=== PATIENT | female | born 1980 | race African-American/Black ===

== ENCOUNTER 2020-06-04 08:34 | Inpatient (IN) ==
[2020-06-04] MEDS ORDERED: MIDAZOLAM 10 MG/2 ML VIAL ONE (09:29)
[2020-06-04] MEDS ORDERED: AMIODARONE 150 MG/3 ML VIAL ONE (09:45)
[2020-06-04] MEDS ORDERED: METOPROLOL TARTRATE 5 MG/5 ML VIAL IV ONE (09:56)
[2020-06-04 10:08] LABS: Alanine Aminotransferase 24 U/L (13-56); Albumin 3.5 G/DL (3.4-5.0); Alkaline Phosphatase 90 U/L (45-117); Aspartate Amino Transferase 21 U/L (0-37); Blood Urea Nitrogen 7 MG/DL (7-18); Calcium 8.6 MG/DL (8.5-10.1); Carbon Dioxide 19 MMOL/L (21-32); Estimated Glom Filtration Rate 106 ML/MIN; Glucose 120 MG/DL (74-106); Osmolality,Calculated 275.5 MOS/KG (273-304); Potassium 3.4 MMOL/L (3.5-5.1); Sodium 139 MMOL/L (136-145); Total Protein 7.4 G/DL (5.0-7.5); Troponin I 0.018 NG/ML (0.00-0.045)
[2020-06-04] MEDS ORDERED: DILTIAZEM 100 MG VIAL.ADD IV ONE (10:13)
[2020-06-04] MEDS ORDERED: DILTIAZEM 50 MG/10 ML VIAL IV ONE (10:14)
[2020-06-04] MEDS ORDERED: diphenhydrAMINE CAP 25 MG CAPSULE PO PRN (10:23)
[2020-06-04] MEDS ORDERED: ALUMINUM/MAGNES/SIMETH MAX STR 30 ML UDCUP PO PRN (10:23)
[2020-06-04] MEDS ORDERED: ONDANSETRON 4 MG/2 ML VIAL IV PRN (10:23)
[2020-06-04] MEDS ORDERED: MAGNESIUM SULF RIDER 4 GM in PREMIX 1 EACH IV PRN (10:23)
[2020-06-04] MEDS ORDERED: MAGNESIUM SULF RIDER 2 GM in PREMIX 1 EACH IV PRN (10:23)
[2020-06-04] MEDS ORDERED: POTASSIUM CHLORIDE 20 MEQ TABLET PO PRN (10:23)
[2020-06-04] MEDS ORDERED: ACETAMINOPHEN 325 MG TABLET PO PRN (10:23)
[2020-06-04] MEDS ORDERED: guaiFENesin/DM ER 600-30 MG TABLET PO PRN (10:23)
[2020-06-04] MEDS ORDERED: PROMETHAZINE 25 MG TABLET PO PRN (10:23)
[2020-06-04] MEDS ORDERED: DOCUSATE SODIUM 100 MG CAPSULE PO PRN (10:23)
[2020-06-04] MEDS ORDERED: MAGNESIUM SULF RIDER 2 GM in PREMIX 1 EACH IV STA (10:26)
[2020-06-04] MEDS ORDERED: POTASSIUM CHLORIDE 20 MEQ TABLET PO STA (10:26)
[2020-06-04] MEDS ORDERED: AMIODARONE IV ONE (10:30)
[2020-06-04] MEDS ORDERED: MIDAZOLAM 10 MG/2 ML VIAL IV STA (10:35)
[2020-06-04] MEDS ORDERED: AMIODARONE INJ 150 MG in DEXTROSE 5% 100 ML IV ONE ×2 (10:36→12:12)
[2020-06-04] MEDS ORDERED: METOPROLOL TARTRATE 5 MG/5 ML VIAL IV STA (10:36)
[2020-06-04] MEDS ORDERED: SODIUM CHLORIDE 0.9% 500 ML IV ONE (10:51)
[2020-06-04] MEDS: DILTIAZEM INJ 100 MG in SODIUM CHLORIDE 0.9% 100 ML IV SCH (11:00)
[2020-06-04 11:38] LABS: Basophils # 0.1 10*3/uL (0.0-0.2); Basophils % 0.4 % (0.0-0.8); Eosinophils # 0.1 10*3/uL (0.0-0.87); Eosinophils % 0.3 % (0.00-10.9); Hematocrit 35.3 VOL% (35.7-47.0); Hemoglobin 10.9 GM/DL (12.0-16.0); Immature Granulocytes % 0.6 %; Lymphocytes # 2.4 10*3/uL (1.4-4.0); Lymphocytes % 14.1 % (21.3-54.2); Mean Corpuscular HGB Conc 30.9 GM/DL (32-36); Mean Corpuscular Volume 76.6 FL (87-102); Mean Platelet Volume 10.5 FL (9.6-12.0); Neutrophils % 76.6 % (38.7-73.9); Platelet Count 192 T/CUMM (130-400); Red Blood Count 4.61 MC/CUMM (3.8-5.5); Red Cell Distribution Width 15.9 % (9.3-17.3); White Blood Count 16.7 T/CUMM (4-12)
[2020-06-04] MEDS: ENOXAPARIN 40 MG/0.4 ML SYRINGE SUBCUT SCH (12:04)
[2020-06-04] MEDS: SODIUM CHLORIDE 0.9% 1,000 ML IV SCH ×2 (12:29→17:44)
[2020-06-04] MEDS: DIGOXIN 0.5 MG/2 ML AMP IV STA ×2 (12:37→13:30)
[2020-06-04 17:48] LABS: Barbiturates Screen,Urine Negative (Negative); Benzodiazepines Screen,Urine Positive (Negative); Cannabinoid Screen,Urine Negative (Negative); Opiate Screen,Urine Negative (Negative); Phencyclidine Screen,Urine Negative (Negative)
[2020-06-04] MEDS: MAGNESIUM OXIDE 400 MG TABLET PO SCH (21:17)
[2020-06-05] MEDS: DILTIAZEM INJ 100 MG in SODIUM CHLORIDE 0.9% 100 ML IV SCH ×2 (01:40→13:51)
[2020-06-05] MEDS: SODIUM CHLORIDE 0.9% 1,000 ML IV SCH ×3 (02:41→12:25)
[2020-06-05 05:10] LABS: Albumin 2.9 G/DL (3.4-5.0); Bilirubin,Total 1.1 MG/DL (0.2-1.0); Calcium 7.7 MG/DL (8.5-10.1); Osmolality,Calculated 275.4 MOS/KG (273-304); Total Protein 6.3 G/DL (6.4-8.2)
[2020-06-05] MEDS: METOPROLOL SUCCINATE XL 50 MG TABLET PO SCH (08:48)
[2020-06-05] MEDS: CETIRIZINE 10 MG TABLET PO SCH (08:48)
[2020-06-05] MEDS: FLUTICASONE 50 MCG NASAL SPRAY 16 GM BOTTLE BOTH NARES SCH (08:49)
[2020-06-05] MEDS: MAGNESIUM OXIDE 400 MG TABLET PO SCH ×2 (08:50→20:57)
[2020-06-05] MEDS: ENOXAPARIN 40 MG/0.4 ML SYRINGE SUBCUT SCH (10:29)
[2020-06-05] MEDS ORDERED: MAGNESIUM SULF RIDER 2 GM in PREMIX 1 EACH IV ONE (10:42)
[2020-06-05] MEDS: FERROUS SULFATE 325 MG TABLET PO SCH (20:58)
[2020-06-06 06:44] LABS: Calcium 8.2 MG/DL (8.5-10.1); Osmolality,Calculated 273.5 MOS/KG (273-304)
[2020-06-06] MEDS: FLUTICASONE 50 MCG NASAL SPRAY 16 GM BOTTLE BOTH NARES SCH (08:28)
[2020-06-06] MEDS: CETIRIZINE 10 MG TABLET PO SCH (08:28)
[2020-06-06] MEDS: METOPROLOL SUCCINATE XL 50 MG TABLET PO SCH (08:28)
[2020-06-06] MEDS: MAGNESIUM OXIDE 400 MG TABLET PO SCH (08:28)
[2020-06-06] MEDS: FERROUS SULFATE 325 MG TABLET PO SCH (08:28)
[2020-06-06] MEDS: ENOXAPARIN 40 MG/0.4 ML SYRINGE SUBCUT SCH (10:14)
[2020-06-06] MEDS: SODIUM CHLORIDE 0.9% 1,000 ML IV SCH ×2 (10:14→14:49)
[2020-06-06 11:58] VITALS: BP 104/61
== END 2020-06-06 16:10 | disposition home or self-care (01) | DRG 310 ==
LOC: EDUNIT# → EDBD → N.ED 08:34 → N.EDINP 08:34 → N.TELES 10:52
PROVIDERS: ADMIT Internal Medicine Cardiovascular Disease; ATTEND Internal Medicine Cardiovascular Disease